=== PATIENT | female | born 1990 ===

== ENCOUNTER 2020-09-25 23:37 | Emergency (ER) | payer SELFPAY ==
[~2020-09-25] VITALS: Ht 152.4 cm; Wt 64.3 kg
[2020-09-25 23:39] VITALS: BP 113/73
[2020-09-25] MEDS ORDERED: vit D PO (23:48)
[2020-09-25] MEDS ORDERED: FERR325T81 PO (23:48)
[2020-09-25] MEDS ORDERED: VITA500C24 PO (23:48)
--- NOTE | 2020-09-26 09:42 | ECGEPIP ---
[facility] - ED Test Date: 2020-09-26 Pat Name: ANGELINA JOSEPH Department: Room: - Gender: Female Aircraft Systems Technician: BATSHEVA : 1990 Requested By: LIEN Reynolds Order Number: [id number] Reading MD: Shiv Vera Measurements Intervals [place] Rate: 73 P: 63 RI: 138 QRS: 6 QRSD: 76 T: 24 QT: 402 QTc: 442 Interpretive Statements Normal sinus rhythm INCOMPLETE RIGHT BUNDLE BRANCH BLOCK NONSPECIFIC T WAVE ABNORMALITY(S) NO PRIORS FOR COMPARISON Electronically Signed on 09-26-2020 9:42:12 EDT by Shiv Vera
== END 2020-09-26 03:06 | disposition left against medical advice (07) ==
LOC: M ED 23:37
DX: Z53.21 Procedure and treatment not carried out due to patient leaving prior to being seen by health care provider (principal)